=== PATIENT | male | born 1985 | race Caucasian/White ===

== ENCOUNTER → 2016-10-30 | Outpatient (CLI) | payer OTHER ==
--- NOTE | 2016-10-30 09:15 | US ---
EXAMINATION TYPE: US kidneys/renal and bladder DATE OF EXAM: 10/30/2016 8:46 AM COMPARISON: NONE CLINICAL HISTORY: Q61.3 Polycystic Kidney Disease. Protein in urine, family history polycystic kidney s large body habitus EXAM MEASUREMENTS: Right Kidney: 11.9 x 4.4 x 5.2 cm Left Kidney: 11.1 x 5.8 x 4.7 cm Post Void Residual Volume: 0.5 mL Right Kidney: wnl Left Kidney: wnl Bladder: wnl Bilateral Jets seen: Yes Normal Post Void Residual: Yes There is no evidence for hydronephrosis at this point in time. No nephrolithiasis is seen. No jen s are identified. The urinary bladder is anechoic. Bilateral ureteral jets are seen. IMPRESSION: 1. No suspicious renal cysts.
== END | disposition home or self-care (01) ==
LOC: RADUSWWP 08:28
PROVIDERS: ATTEND Family Medicine
DX: Q61.3 Polycystic kidney, unspecified (principal)
CPT/HCPCS: 76770